=== PATIENT | male | born 1990 | race Two or more races ===

== ENCOUNTER 2025-03-09 20:40 | Emergency (ER) | payer MEDICAID, OTHER ==
[~2025-03-09] VITALS: Ht 175.3 cm; Wt 95.5 kg
--- NOTE | 2025-03-09 21:37 | DVH ---
CLINICAL INDICATION: INJURY TECHNIQUE: 3 views XY L FOOT 3 VIEW XRAY Comparison: None FINDINGS: Transverse, mildly comminuted, nondisplaced extra-articular fracture of the 5th metatarsal proximal m eta diaphysis. Overlying soft tissue swelling. No dislocation or additional fracture. IMPRESSION: 1. Transverse extra-articular fracture of the 5th metatarsal proximal meta diaphysis.
--- NOTE | 2025-03-09 21:59 | ED.PDOC ---
Back pain HPI HPI Comments This is a 34-year-old male who presented to the ER with a chief complaint of left foot pain after foot injury. Patient was going after his kid on the sidewalk when he stepped on something and extensively dorsiflexed his left foot, and heard a pop. Patient is able to weightbear with pain, can dorsiflex and plantar flex the foot with pain. Active and passive range of motion intact with the pain. No neurological deficits, denies numbness or tingling. Past medical/surgical history: Right 5th metatarsal Warren fracture status post repair, osteoarthritis, spinal stenosis Home medication, ibuprofen, [place] Denies allergies. Patient seen and examined, swelling and tenderness noted over the left 5th m etatarsal base, no open wounds or deformity noted. Capillary reflex intact. Active and passive range of motion intact with pain. X-ray left foot shows Transverse, mildly comminuted, nondisplaced extra-articular fracture of the 5th metatarsal proximal meta diaphysis. Overlying soft tissue swelling. No dislocation or additional fracture. Patient provided with a zhong boot. Attestation note: Dr. Espino: I was the supervising attending for this ED encounter. Please see the resident's notes. I was available for questions and consultations. Differential diagnosis: Fracture, dislocation, neurovascular injury, compartment syndrome, hematoma, cellulitis, MDM: MDM: patient presented with the above HPI.--foot injury---workup was initiated. patient was found with the above mentioned diagnosis. the following medications were ordered: please refer to order lists of meds and tests obtained by myself Dr. Espino. Patient ED course and VS have been stabilized. Patient has been reassessed in the ED and remained in a stable condition. Pertinent incidental findings were discussed with the patient and/or family. Patient/family voices understanding and is agreeable with plan. Patient has been observed in the ED adequate length of time to insure improvem ent/stability. Escalation of care considered: Consideration of escalation to observation or admission Orthopedic was consulted. Patient was given a zhong hard sole shoe. Patient was given crutches. Patient was DISCHARGED home in a stable condition. All the reports of any imaging studies that were ordered by myself were reviewed by myself. Chief Complaint: Lower Extremity Time Seen by MD: 21:20 Reviewed Notes: Allergies Allergies: Coded Allergies: NO KNOWN ALLERGIES (Unverified , 03/09/25) Information Source: Patient Mode of Arrival: Ambulatory Past Medical History Past Medical History (Other): Spinal stenosis, osteoarthritis Constitutional: denies: chills, diaphoresis, fatigue, fever, malaise, sweats, weakness, others EENTM: denies: blurred vision, double vision, ear bleeding, ear discharge, ear drainage, ear pain, ear ringing, eye pain, eye redness, hearing loss, mouth pain, mouth swelling, nasal discharge, nose bleeding, nose congestion, nose pain, photophobia, tearing, throat pain, throat swelling, voice changes, others Respiratory: denies: cough, hemoptysis, orthopnea, SOB at rest, shortness of breath, SOB with excertion, stridor, wheezing, others Cardiovascular: denies: chest pain, dizzy spells, diaphoresis, Dyspnea on exertion, edema, irregular heart beat, left arm pain, lightheadedness, palpitations, PND, syncope, others Gastrointestinal: denies: abdomen distended, abdominal pain, blood streaked bowels, constipated, diarrhea, dysphagia, difficulty swallowing, hematemesis, melena, nausea, poor appetite, poor fluid intake, rectal bleeding, rectal pain, vomiting, others Genitourinary: denies: burning, dysuria, flank pain, frequency, hematuria, incontinence, penile discharge, penile sore, pain, testicle pain, testicle swelling, urgency, others Neurological: denies: dizziness, fainting, headache, left sided numbness, left sided weakness, numbness, paresthesia, pre-existing deficit, right sided numbness, right sided weakness, seizure, speech problems, tingling, tremors, weakness, others Musculoskeletal: reports: joint pain, joint swelling, others (Left foot pain and swelling) Integumetry: denies: bruises, change in color, change in hair/nails, dryness, laceration, lesions, lumps, rash, wounds, others Allergic/Immunocompromised: denies: Difficulty Healing, Frequent Infections, Hives, Itching, others Hematologic/Lymphatic: denies: anemia, blood clots, easy bleeding, easy bruising, swollen glands, others Endocrine: denies: excessive hunger, excessive sweating, excessive thirst, excessive urination, flushing, intolerance to cold, intolerance to heat, unexplained weight gain, unexplained weight loss, others Psychiatric: denies: anxiety, bipolar disorder, depression, hopeless, panic disorder, schizophrenia, sleepless, suicidal, others Physical Exam General Appearance: No Apparent Distress, Normal HEENT: NOT DONE Neck: NOT DONE Respiratory: No Accessory Muscle Use, No Respiratory Distress, Normal Breath So unds Cardiovascular: Regular Rate/Rhythm Breast Exam: Deferred Gastrointestinal: Non Tender, Normal Bowel Sounds Genitalia: Deferred Pelvic: Deferred Rectal: Deferred Extremities: Swelling, Tender, Other (Left 5th metatarsal base is tender, swollen, no deformity noted, active and passive range of motion intact with pain, dorsiflexion and plantar flexion intact with pain.) Neurologic: No Motor Deficits, Normal Mood, No Sensory Deficits Cerebellar Function: NOT DONE Reflexes: NOT DONE Skin: Dry Lymphatic: NOT DONE Was a procedure done? Was a procedure done?: No Back Pain Differential Dx Differential Diagnosis: Fracture Other Differential Diagnosis Ligamentous sprain, meta tarsal fracture, X-Ray, Labs, Meds, VS Vital Signs Date Time Temp Pulse Resp B/P (MAP) Pulse Ox O2 Delivery O2 Flow Rate FiO2 03/09/25 23:24 98.4 83 19 121/76 (91) 99 98.4 03/09/25 20:41 97.9 106 16 143/87 96 97.9 X-Ray, Labs, Meds, VS Comment X-ray left foot shows Transverse, mildly comminuted, nondisplaced extra- articular fracture of the 5th metatarsal proximal meta diaphysis. Overlying soft tissue swelling. No dislocation or additional fracture. Patient provided with a zhong boot. Images Reviewed?: Images reviewed and evaluated by me Time of 1ST Reevaluation: 23:00 Reevaluation 1ST: Zhong boot provided Consultation: PCP Patient Education/Counseling: Diagnosis, Treatment, Prognosis Family Education/Counseling: No Family Present SEPSIS Sepsis Screen Date sepsis recognized/suspect: Mar 09, 2025 Time Sepsis recognized/suspect: 2040 Recent Procedure: No On Antibiotic Therapy: No Respiratory Rate >20: No Heart Rate >90: Yes Temp<36 C (96.8 F) or >38.3 C: No SBP <90 or MAP <65 mmHG: No New Acute Mental Status Change: No Is the patient on CPAP, BIPAP,: No Physician Orders L Foot 3 View Xray (03/09/25 20:50) Ice/Cold Pack (03/09/25 ) Weight-Bearing Restrictions (03/09/25 21:47) Crutches And Crutch Training (03/09/25 22:51) Vital Signs Date Time Temp Pulse Resp B/P (MAP) Pulse Ox O2 Delivery O2 Flow Rate FiO2 03/09/25 23:24 98.4 83 19 121/76 (91) 99 98.4 03/09/25 20:41 97.9 106 16 143/87 96 97.9 Departure 1 Departure Time of Disposition: 22:51 Impression: Primary Impression: Metatarsal bone fracture Disposition: 01 HOME / SELF CARE / HOMELESS Condition: Stable Additional Instructions: Additional instructions: Please read all instructions provided in this packet carefully. You MUST follow-up with your primary care/family doctor in 1 to 2 days. If you are unable to see your primary care/family doctor, please return to our emergency room for re-assessment and re-evaluation in 1 to 2 days. Return to the emergency room here in our facility or to the nearest ER [facility] if your symptoms change or worsen. CONSULTATIONS: you MUST Follow-up for consultation as soon as possible with: ----podiatry and orthopedic surgery in 1-2 days. Please call for appointment. You MUST call the consultants office yourself to make an appointment. You may need to arrange that through your insurance and/or your primary/family doctor. If you are unable to see the human resource consultant in 1 to 2 days, you must return to our emergency room (or any other ER of your choice) for re-assessment and re- evaluation. Adequate fluid hydration. Although you have been discharged from the Emergency Department, this does not mean that you have a "clean bill of health". No definitive diagnosis for your symptoms has been made today. It is possible that you are in the process of developing a serious illness. This is why you must return to the ED without fail if any new or worsening symptoms develop. Continue wearing your zhong shoe has instructed. Below is a copy of your radiological report for follow up: [facility] [place] [id number] [id number] Ph: [phone] DIAGNOSTIC IMAGING Diagnostic Imaging Report : [id number] Signed PATIENT: CROW ANAYA ACCT: [id number] UNIT: [id number] : 1990 LOC: ER ROOM / BED: / AGE / SEX: 34 / M ADM STATUS: REG ER SERVICE 49 ORDERING PHYSICIAN: DONTE ESPINO DO PROCEDURE(s): LFOOT - L FOOT 3 VIEW XRAY REASON: INJURY ORDER NUMBER(s): [id number], ACCESSION NUMBER(s): [id number] CLINICAL INDICATION: INJURY TECHNIQUE: 3 views XY L FOOT 3 VIEW XRAY Comparison: None FINDINGS: Transverse, mildly comminuted, nondisplaced extra-articular fracture of the 5th metatarsal proximal meta diaphysis. Overlying soft tissue swelling. No disl ocation or additional fracture. IMPRESSION: 1. Transverse extra-articular fracture of the 5th metatarsal proximal meta diaphysis. ATED BY: KALA PRABHAKAR MD DICTATED DATE/TIME: 03/09/252134 SIGNED BY: KALA PRABHAKAR MD SIGNED DATE/TIME: 03/09/252134 CC: Discharged With: Self Critical Care Note Critical Care Time?: No Stability Stability form required: NOELLE Coburn RESIDENT Mar 09, 2025 21:59 DONTE ESPINO DO Mar 09, 2025 22:53
[2025-03-09 23:24] VITALS: BP 121/76; TEMP 98.4; O2SAT 99
[2025-03-09 23:58] VITALS: PULSE 64; RESP 18
== END 2025-03-09 22:53 | disposition home or self-care (01) ==
LOC: ER 20:40
DX: S92.355A Nondisplaced fracture of fifth metatarsal bone, left foot, initial encounter for closed fracture (principal); W22.8XXA Striking against or struck by other objects, initial encounter; Y93.89 Activity, other specified; Y92.89 Other specified places as the place of occurrence of the external cause; Y99.8 Other external cause status
CPT/HCPCS: 73630